=== PATIENT | male | born 1945 | race Caucasian/White ===

== ENCOUNTER → 2016-04-27 | Outpatient (CLI) | payer MEDICARE, OTHER ==
[2016-04-27 09:05] LABS: ABSOLUTE BASOPHILS # (AUTO) 0.1 10^3/uL (0.0-0.2); ABSOLUTE EOSINOPHILS # (AUTO) 0.3 10^3/uL (0.0-0.6); ABSOLUTE LYMPHOCYTES (AUTO) 2.1 10^3/uL (0.5-4.7); ABSOLUTE MONOCYTES (AUTO) 0.6 10^3/uL (0.1-1.4); BASOPHILS % (AUTO) 0.9 % (0-2); EOSINOPHILS % (AUTO) 5.1 % (0-6); HEMATOCRIT 40.3 % (37.9-51.0); HEMOGLOBIN 13.1 g/dL (13.5-17.0); LYMPHOCYTES % (AUTO) 34.4 % (13-45); MEAN CORPUSCULAR HEMOGLOBIN 28.5 pg (27.0-33.4); MEAN CORPUSCULAR HGB CONC 32.5 g/dL (32.0-36.0); MEAN CORPUSCULAR VOLUME 88 fl (80-97); MONOCYTES % (AUTO) 10.4 % (3-13); RED BLOOD COUNT 4.59 10^6/uL (4.35-5.55); SEGMENTED NEUTROPHILS % (AUTO) 49.2 % (42-78)
[2016-04-27 09:23] LABS: ALANINE AMINOTRANSFERASE 27 U/L (21-72); ALKALINE PHOSPHATASE 110 U/L (38-126); ANION GAP 13 (5-19); ASPARTATE AMINO TRANSFERASE 27 U/L (17-59); BILIRUBIN,TOTAL 1.6 mg/dL (0.2-1.3); BLOOD UREA NITROGEN 16 mg/dL (7-20); CALCIUM 9.6 mg/dL (8.4-10.2); CARBON DIOXIDE 28 mmol/L (22-30); CHLORIDE 104 mmol/L (98-107); CREATININE RESULT 0.95 mg/dL (0.52-1.25); GLUCOSE 193 mg/dL (75-110); POTASSIUM 4.3 mmol/L (3.6-5.0); SODIUM 144.5 mmol/L (137-145); TOTAL PROTEIN 7.9 g/dL (6.3-8.2)
== END ==
LOC: OD 08:39
PROVIDERS: ATTEND Urology
DX: N40.1 Benign prostatic hyperplasia with lower urinary tract symptoms (principal); I51.9 Heart disease, unspecified; N32.81 Overactive bladder; F98.0 Enuresis not due to a substance or known physiological condition; B18.1 Chronic viral hepatitis B without delta-agent
CPT/HCPCS: 36415; 80053; 85025

== ENCOUNTER → 2016-11-15 | Outpatient (CLI) | payer MEDICARE, OTHER ==
[2016-11-15 10:36] LABS: ALANINE AMINOTRANSFERASE 33 U/L (21-72); ALBUMIN 3.9 g/dL (3.5-5.0); ALKALINE PHOSPHATASE 107 U/L (38-126); ANION GAP 13 (5-19); ASPARTATE AMINO TRANSFERASE 31 U/L (17-59); BILIRUBIN,DIRECT 0.3 mg/dL (0.0-0.4); BILIRUBIN,TOTAL 1.1 mg/dL (0.2-1.3); BLOOD UREA NITROGEN 15 mg/dL (7-20); CALCIUM 9.7 mg/dL (8.4-10.2); CARBON DIOXIDE 25 mmol/L (22-30); CHLORIDE 106 mmol/L (98-107); CHOLESTEROL 141.76 mg/dL (0-200); CREATININE RESULT 0.84 mg/dL (0.52-1.25); Direct HDL 28 mg/dL (>40); GLUCOSE 160 mg/dL (75-110); POTASSIUM 4.2 mmol/L (3.6-5.0); SODIUM 143.6 mmol/L (137-145); TOTAL PROTEIN 7.9 g/dL (6.3-8.2); TRIGLYCERIDES 262 mg/dL (<150)
[2016-11-15 10:47] LABS: DIRECT LDL 72 mg/dL (<100)
[2016-11-15 10:54] LABS: VLDL CHOLESTEROL 52.4 mg/dL (10-31)
== END ==
LOC: OD 09:20
PROVIDERS: ATTEND Internal Medicine
DX: Z79.899 Other long term (current) drug therapy (principal); E78.4 Other hyperlipidemia
CPT/HCPCS: 36415; 80053; 80061

== ENCOUNTER → 2017-02-22 | Outpatient (CLI) | payer MEDICARE, OTHER ==
[2017-02-22 11:55] LABS: ALANINE AMINOTRANSFERASE 29 U/L (21-72); ALBUMIN 4.2 g/dL (3.5-5.0); ALKALINE PHOSPHATASE 107 U/L (38-126); ANION GAP 15 (5-19); ASPARTATE AMINO TRANSFERASE 26 U/L (17-59); BILIRUBIN,DIRECT 0.4 mg/dL (0.0-0.4); BILIRUBIN,TOTAL 1.3 mg/dL (0.2-1.3); BLOOD UREA NITROGEN 15 mg/dL (7-20); CALCIUM 9.4 mg/dL (8.4-10.2); CARBON DIOXIDE 24 mmol/L (22-30); CHLORIDE 108 mmol/L (98-107); CHOLESTEROL 197.97 mg/dL (0-200); CREATININE RESULT 0.87 mg/dL (0.52-1.25); Direct HDL 31 mg/dL (>40); GLUCOSE 147 mg/dL (75-110); SODIUM 147.3 mmol/L (137-145); TOTAL PROTEIN 7.5 g/dL (6.3-8.2); TRIGLYCERIDES 212 mg/dL (<150)
[2017-02-22 12:06] LABS: DIRECT LDL 135 mg/dL (<100)
[2017-02-22 12:11] LABS: VLDL CHOLESTEROL 42.4 mg/dL (10-31)
== END ==
LOC: OD 09:07
PROVIDERS: ATTEND Internal Medicine
DX: E11.9 Type 2 diabetes mellitus without complications (principal); E78.4 Other hyperlipidemia; I10 Essential (primary) hypertension; Z79.899 Other long term (current) drug therapy
CPT/HCPCS: 36415; 80053; 80061; 83036

== ENCOUNTER → 2017-06-14 | Outpatient (CLI) | payer MEDICARE, OTHER ==
[2017-06-14 12:36] LABS: ALANINE AMINOTRANSFERASE 35 U/L (21-72); ALBUMIN 4.3 g/dL (3.5-5.0); ALKALINE PHOSPHATASE 91 U/L (38-126); ASPARTATE AMINO TRANSFERASE 30 U/L (17-59); BILIRUBIN,DIRECT 0.2 mg/dL (0.0-0.4); BILIRUBIN,TOTAL 1.2 mg/dL (0.2-1.3); CHOLESTEROL 118.06 mg/dL (0-200); TOTAL PROTEIN 7.9 g/dL (6.3-8.2); TRIGLYCERIDES 168 mg/dL (<150)
[2017-06-14 12:47] LABS: DIRECT LDL 69 mg/dL (<100)
[2017-06-14 12:50] LABS: VLDL CHOLESTEROL 33.6 mg/dL (10-31)
== END ==
LOC: OD 11:29
PROVIDERS: ATTEND Internal Medicine
DX: I25.10 Atherosclerotic heart disease of native coronary artery without angina pectoris (principal); I10 Essential (primary) hypertension; I34.0 Nonrheumatic mitral (valve) insufficiency; R06.02 Shortness of breath; I49.3 Ventricular premature depolarization; E11.9 Type 2 diabetes mellitus without complications; E78.4 Other hyperlipidemia; Z79.899 Other long term (current) drug therapy
CPT/HCPCS: 36415; 80061; 80076

== ENCOUNTER → 2017-06-22 | Outpatient (CLI) | payer MEDICARE, OTHER | LOC: OD 10:24 | PROVIDERS: ATTEND Internal Medicine | DX: I25.10 Atherosclerotic heart disease of native coronary artery without angina pectoris (principal); I34.0 Nonrheumatic mitral (valve) insufficiency; R06.02 Shortness of breath; I49.3 Ventricular premature depolarization; E11.9 Type 2 diabetes mellitus without complications; E78.4 Other hyperlipidemia; I10 Essential (primary) hypertension; Z79.899 Other long term (current) drug therapy | CPT/HCPCS: 36415; 83880 ==

== ENCOUNTER → 2017-07-25 | Outpatient (CLI) | payer MEDICARE, OTHER ==
[2017-07-25 13:51] LABS: ANION GAP 14 (5-19); BLOOD UREA NITROGEN 15 mg/dL (7-20); CALCIUM 9.3 mg/dL (8.4-10.2); CARBON DIOXIDE 27 mmol/L (22-30); CHLORIDE 106 mmol/L (98-107); GLUCOSE 160 mg/dL (75-110); POTASSIUM 4.1 mmol/L (3.6-5.0); SODIUM 147.3 mmol/L (137-145)
== END ==
LOC: OD 12:41
PROVIDERS: ATTEND Internal Medicine
DX: I25.10 Atherosclerotic heart disease of native coronary artery without angina pectoris (principal); I34.0 Nonrheumatic mitral (valve) insufficiency; I10 Essential (primary) hypertension; R06.02 Shortness of breath; I49.3 Ventricular premature depolarization; E11.9 Type 2 diabetes mellitus without complications; E78.4 Other hyperlipidemia; Z79.899 Other long term (current) drug therapy
CPT/HCPCS: 36415; 80048

== ENCOUNTER → 2018-11-15 | Outpatient (CLI) | payer MEDICARE, OTHER ==
[2018-11-15 09:28] LABS: ABSOLUTE EOSINOPHILS # (AUTO) 0.2 10^3/uL (0.0-0.6); ABSOLUTE LYMPHOCYTES (AUTO) 2.2 10^3/uL (0.5-4.7); ABSOLUTE MONOCYTES (AUTO) 0.5 10^3/uL (0.1-1.4); ABSOLUTE NEUT (AUTO) 2.3 10^3/uL (1.7-8.2); BASOPHILS % (AUTO) 0.8 % (0-2); EOSINOPHILS % (AUTO) 3.4 % (0-6); HEMATOCRIT 42.3 % (37.9-51.0); MEAN CORPUSCULAR HEMOGLOBIN 28.6 pg (27.0-33.4); MEAN CORPUSCULAR VOLUME 87 fl (80-97); MONOCYTES % (AUTO) 9.7 % (3-13); PLATELET COUNT 167 10^3/uL (150-450); RED BLOOD COUNT 4.89 10^6/uL (4.35-5.55); RED CELL DISTRIBUTION WIDTH 14.5 % (11.5-14.0); SEGMENTED NEUTROPHILS % (AUTO) 44.1 % (42-78); TOTAL CELLS COUNTED % (AUTO) 100 %; WHITE BLOOD COUNT 5.2 10^3/uL (4.0-10.5)
[2018-11-15 09:52] LABS: ANION GAP 12 (5-19); BLOOD UREA NITROGEN 14 mg/dL (7-20); CALCIUM 9.5 mg/dL (8.4-10.2); CARBON DIOXIDE 29 mmol/L (22-30); CHLORIDE 98 mmol/L (98-107); GLUCOSE 326 mg/dL (75-110); POTASSIUM 3.9 mmol/L (3.6-5.0)
[2018-11-15 10:07] LABS: FREE T3 4.89 pg/mL (2.77-5.27)
[2018-11-15 10:21] LABS: THYROID STIMULATING HORMONE 5.13 uIU/mL (0.47-4.68)
== END ==
LOC: OD 08:51
PROVIDERS: ATTEND Specialist
DX: I25.10 Atherosclerotic heart disease of native coronary artery without angina pectoris (principal); I34.0 Nonrheumatic mitral (valve) insufficiency; R06.02 Shortness of breath; I49.3 Ventricular premature depolarization; E11.9 Type 2 diabetes mellitus without complications; I10 Essential (primary) hypertension; E78.49 Other hyperlipidemia; Z79.899 Other long term (current) drug therapy
CPT/HCPCS: 36415; 80048; 83735; 84443; 84481; 85025

== ENCOUNTER 2019-01-09 13:33 | Emergency (ER) | payer MEDICARE, OTHER ==
--- NOTE | 2019-01-09 14:11 | ER Document Report ---
ED Medical Screen (RME) - General Chief Complaint: Cold Symptoms Stated Complaint: VOMITING Time Seen by Provider: 01/09/19 14:06 Primary Care Provider: ACMMY MORSE MD [Primary Care Provider] - Follow up as needed Notes: Patient is a 73-year-old male presents to the emergency department with a chief complaint of a cough. He has had his coughing for the past 3 days. He denies any chest pain. He states that he is got a little bit of shortness of breath, but always has shortness of breath. Past medical history includes COPD, coronary disease, CHF. Exam: Diminished breath sounds noted bilaterally. I have greeted and performed a rapid initial assessment of this patient. A comprehensive ED assessment and evaluation of the patient, analysis of test results and completion of medical decision making process will be conducted by an additional ED providers. TRAVEL OUTSIDE OF THE [place] IN LAST 30 DAYS: No - Related Data Allergies/Adverse Reactions: No Known Allergies Allergy (Verified 01/09/19 13:51) Past Medical History - Social History Chew tobacco use (# tins/day): No Frequency of alcohol use: None Drug Abuse: None - Past Medical History Cardiac Medical History: Reports: Hx Congestive Heart Failure, Hx Hypertension Denies: Hx Coronary Artery Disease, Hx Heart Attack Pulmonary Medical History: Reports: Hx COPD Denies: Hx Asthma, Hx Bronchitis, Hx Pneumonia Neurological Medical History: Denies: Hx Cerebrovascular Accident, Hx Seizures Endocrine Medical History: Reports: Hx Diabetes Mellitus Type 1 Musculoskeltal Medical History: Denies Hx Arthritis Psychiatric Medical History: Reports: Hx Depression Past Surgical History: Reports: Hx Cardiac Catheterization, Hx Cholecystectomy, Hx Coronary Stent - Immunizations Hx Diphtheria, Pertussis, Tetanus Vaccination: Yes Physical Exam - Vital signs Vitals: Temp Pulse BP Pulse Ox 97.8 F 93 160/77 H 95 01/09/19 13:45 01/09/19 13:45 01/09/19 13:45 01/09/19 13:45 Course - Vital Signs Vital signs: Temp Pulse Resp BP Pulse Ox 97.8 F 93 160/77 H 95 01/09/19 13:45 01/09/19 13:45 01/09/19 13:45 01/09/19 13:45 Doctor's Discharge - Discharge Referrals: CAMMY MORSE MD [Primary Care Provider] - Follow up as needed
[2019-01-09 14:38] LABS: ABSOLUTE BASOPHILS # (AUTO) 0.1 10^3/uL (0.0-0.2); ABSOLUTE EOSINOPHILS # (AUTO) 0.1 10^3/uL (0.0-0.6); ABSOLUTE LYMPHOCYTES (AUTO) 1.5 10^3/uL (0.5-4.7); ABSOLUTE MONOCYTES (AUTO) 0.6 10^3/uL (0.1-1.4); BASOPHILS % (AUTO) 0.7 % (0-2); EOSINOPHILS % (AUTO) 1.6 % (0-6); HEMATOCRIT 41.2 % (37.9-51.0); HEMOGLOBIN 13.5 g/dL (13.5-17.0); LYMPHOCYTES % (AUTO) 17.6 % (13-45); MEAN CORPUSCULAR HEMOGLOBIN 28.3 pg (27.0-33.4); MEAN CORPUSCULAR HGB CONC 32.6 g/dL (32.0-36.0); MEAN CORPUSCULAR VOLUME 87 fl (80-97); MONOCYTES % (AUTO) 7.6 % (3-13); PLATELET COUNT 203 10^3/uL (150-450); RED BLOOD COUNT 4.75 10^6/uL (4.35-5.55); RED CELL DISTRIBUTION WIDTH 15.4 % (11.5-14.0); SEGMENTED NEUTROPHILS % (AUTO) 72.5 % (42-78); TOTAL CELLS COUNTED % (AUTO) 100 %; WHITE BLOOD COUNT 8.3 10^3/uL (4.0-10.5)
[2019-01-09 14:59] LABS: ALBUMIN 3.8 g/dL (3.5-5.0); ALKALINE PHOSPHATASE 102 U/L (38-126); ANION GAP 10 (5-19); ASPARTATE AMINO TRANSFERASE 18 U/L (17-59); BILIRUBIN,DIRECT 0.1 mg/dL (0.0-0.4); BILIRUBIN,TOTAL 1.7 mg/dL (0.2-1.3); BLOOD UREA NITROGEN 12 mg/dL (7-20); CALCIUM 9.3 mg/dL (8.4-10.2); CARBON DIOXIDE 30 mmol/L (22-30); CHLORIDE 98 mmol/L (98-107); CREATINE KINASE 93 U/L (55-170); GLUCOSE 328 mg/dL (75-110); POTASSIUM 4.7 mmol/L (3.6-5.0); TOTAL PROTEIN 7.6 g/dL (6.3-8.2)
[2019-01-09 15:11] LABS: CREATINE KINASE MB 1.16 ng/mL (<4.55)
[2019-01-09 15:16] LABS: TROPONIN I 0.047 ng/mL
--- NOTE | 2019-01-09 15:26 | RADIOLOGY REPORT (SQ) ---
EXAM DESCRIPTION: CHEST 2 VIEWS COMPLETED DATE/TIME: 01/09/2019 3:14 pm REASON FOR STUDY: cough COMPARISON: 11/10/2010 EXAM PARAMETERS: NUMBER OF VIEWS: two views TECHNIQUE: Digital Frontal and Lateral radiographic views of the chest acquired. RADIATION DOSE: NA LIMITATIONS: none FINDINGS: LUNGS AND PLEURA: There appears to be a calcified granuloma in the right apex. MEDIASTINUM AND HILAR STRUCTURES: No masses or contour abnormalities. HEART AND VASCULAR STRUCTURES: Cardiomegaly. No pulmonary edema. BONES: No acute findings. HARDWARE: None in the chest. OTHER: No other significant finding. IMPRESSION: Cardiomegaly without pulmonary edema. TECHNICAL DOCUMENTATION: JOB ID: [id number] [employer]- All Rights Reserved Reading location - IP/workstation name: [email or web address]
--- NOTE | 2019-01-09 17:00 | ER Document Report ---
ED General - General Chief Complaint: Cold Symptoms Stated Complaint: VOMITING Time Seen by Provider: 01/09/19 14:06 Primary Care Provider: CAMMY MORSE MD [ACTIVE STAFF] - Follow up as needed TRAVEL OUTSIDE OF THE [place] IN LAST 30 DAYS: No - HPI Onset/Duration: Gradual Quality of pain: No pain Severity: Mild Context: 73 year old male [place] with h/o a fib, htn, diabetes has had a cough and conge stion for about 5 days. He has 2 grandchildren who have been sick with respiratory illness that have been close to him. He coughed so much that he vomited earlier. He has had a low grade fever. Additional history is PTSD from [place] and [place]. Associated symptoms: Nonproductive cough - Related Data Allergies/Adverse Reactions: No Known Allergies Allergy (Verified 01/09/19 13:51) Past Medical History - Social History Smoking Status: Former Smoker Chew tobacco use (# tins/day): No Frequency of alcohol use: None Drug Abuse: None Family History: COPD, Hypertension, Reviewed & Not Pertinent Patient has suicidal ideation: No Patient has homicidal ideation: No - Past Medical History Cardiac Medical History: Reports: Hx Congestive Heart Failure, Hx Hypertension Denies: Hx Coronary Artery Disease, Hx Heart Attack Pulmonary Medical History: Reports: Hx COPD Denies: Hx Asthma, Hx Bronchitis, Hx Pneumonia Neurological Medical History: Denies: Hx Cerebrovascular Accident, Hx Seizures Endocrine Medical History: Reports: Hx Diabetes Mellitus Type 1 Musculoskeletal Medical History: Denies Hx Arthritis Psychiatric Medical History: Reports: Hx Depression Past Surgical History: Reports: Hx Cardiac Catheterization, Hx Cholecystectomy, Hx Coronary Stent - Immunizations Hx Diphtheria, Pertussis, Tetanus Vaccination: Yes Hx Pneumococcal Vaccination: 12/04/11 Review of Systems - Review of Systems Constitutional: No symptoms reported EENT: No symptoms reported Cardiovascular: No symptoms reported Respiratory: See HPI, Cough. denies: Hemoptysis, Short of breath Gastrointestinal: No symptoms reported Genitourinary: No symptoms reported Male Genitourinary: No symptoms reported Musculoskeletal: No symptoms reported Skin: No symptoms reported Hematologic/Lymphatic: No symptoms reported Neurological/Psychological: No symptoms reported Physical Exam - Vital signs Vitals: Temp Pulse BP Pulse Ox 97.8 F 93 160/77 H 95 01/09/19 13:45 01/09/19 13:45 01/09/19 13:45 01/09/19 13:45 Interpretation: Normal - General General appearance: Appears well, Alert - HEENT Head: Normocephalic, Atraumatic Eyes: Normal Pupils: PERRL - Respiratory Respiratory status: No respiratory distress Chest status: Nontender Breath sounds: Normal Chest palpation: Normal - Cardiovascular Rhythm: Regular Heart sounds: Normal auscultation Murmur: No - Abdominal Inspection: Normal Distension: No distension Bowel sounds: Normal Tenderness: Nontender Organomegaly: No organomegaly - Back Back: Normal, Nontender - Extremities General upper extremity: Normal inspection, Nontender, Normal color, Normal ROM, Normal temperature General lower extremity: Normal inspection, Nontender, Normal color, Normal ROM, Normal temperature, Normal weight bearing. No: Vannessa's sign - Neurological Neuro grossly intact: Yes Cognition: Normal Orientation: AAOx4 Haynes Coma Scale Eye Opening: Spontaneous Malini Coma Scale Verbal: Oriented Malini Coma Scale Motor: Obeys Commands Haynes Coma Scale Total: 15 Speech: Normal Motor strength normal: LUE, RUE, LLE, RLE Sensory: Normal - Psychological Associated symptoms: Normal affect, Normal mood - Skin Skin Temperature: Warm Skin Moisture: Dry Skin Color: Normal Course - Re-evaluation Re-evalutation: 01/09/19 17:27 MDM Pleasant 73 year old male with complaints of cough sinus congestion and getting worse from resp illness that he has had for about 5 days. Glucose a bit elevated here. - Vital Signs Vital signs: Temp Pulse Resp BP Pulse Ox 97.8 F 93 160/77 H 95 01/09/19 13:45 01/09/19 13:45 01/09/19 13:45 01/09/19 13:45 - Laboratory Result Diagrams: 01/09/19 14:15 01/09/19 14:15 Laboratory results interpreted by me: 01/09/19 01/09/19 01/09/19 14:15 14:15 17:34 RDW 15.4 H Glucose 328 H POC Glucose 202 H Total Bilirubin 1.7 H - Diagnostic Test Radiology reviewed: Reports reviewed - EKG Interpretation by Me EKG shows normal: Sinus rhythm Rate: Tachycardia - Sinus Tachy Nl axis [address] elevation or depression Repolarization abnormality. my interpretation. Discharge - Discharge Clinical Impression: Sinusitis Qualifiers: Sinusitis location: maxillary Chronicity: acute Recurrence: non-recurrent Qualified Code(s): J01.00 - Acute maxillary sinusitis, unspecified Diabetes mellitus Qualifiers: Diabetes mellitus type: type 2 Diabetes mellitus loading machine operator insulin use: without loading machine operator use Diabetes mellitus complication status: with other specified complication Qualified Code(s): E11.69 - Type 2 diabetes mellitus with other specified complication Condition: Good Disposition: HOME, SELF-CARE Instructions: Cough Suppressant & Expectorant Medications, Hyperglycemia ([facility]), Sinusitis ([facility]) Additional Instructions: See your doctor in followup. Your blood sugar was elevated a bit. Be sure and take your diabetic medicines. Please return here for any problems or any concerns. Prescriptions: Benzonatate [Tessalon Perle 100 mg Capsule] 100 mg PO Q8HP PRN #21 cap PRN Reason: Amoxicillin/Potassium Clav [Amox-Clav 875-125 mg Tablet] 1 each PO BID #20 tablet Referrals: CAMMY MORSE MD [ACTIVE STAFF] - Follow up as needed
[2019-01-09] MEDS ORDERED: INSULIN REG, HUMAN 100 UNIT/ML 3 ML VIAL (PYX) SUBCUT ONE (17:28)
[2019-01-09 18:07] LABS: A TYPE INFLUENZA AG NEGATIVE (NEGATIVE); B INFLUENZA AG NEGATIVE (NEGATIVE)
--- NOTE | 2019-01-09 18:19 | EKG REPORT ---
SEVERITY:- ABNORMAL ECG - INCOMPLETE ANALYSIS DUE TO MISSING DATA IN PRECORDIAL LEAD(S) SINUS TACHYCARDIA VENTRICULAR PREMATURE COMPLEXES NONSPECIFIC T ABNORMALITIES, LATERAL LEADS PROLONGED QT INTERVAL : Confirmed by: Matthew Lima MD 09-Jan-2019 18:19:19
[2019-01-09 18:45] VITALS: BP 149/87
== END 2019-01-09 18:45 | disposition home or self-care (01) ==
LOC: ER 13:33
DX: J01.00 Acute maxillary sinusitis, unspecified (principal); E11.8 Type 2 diabetes mellitus with unspecified complications; R05 Cough; R11.10 Vomiting, unspecified; R50.9 Fever, unspecified; I10 Essential (primary) hypertension; R09.81 Nasal congestion; J44.9 Chronic obstructive pulmonary disease, unspecified; R00.0 Tachycardia, unspecified; Z87.891 Personal history of nicotine dependence
CPT/HCPCS: 93005; 36415; 82553; 82962; 82550; 85025; 80053; 84484; 87804; 71046; 93010; A9270; 99284; J1815

== ENCOUNTER 2019-01-13 23:34 | Emergency (ER) | payer MEDICARE, OTHER ==
[2019-01-14] MEDS ORDERED: IPRATROPIUM/ALBUTEROL 0.5-2.5 MG/3 ML AMPUL NEB ONE (02:36)
--- NOTE | 2019-01-14 02:37 | ER Document Report ---
ED Respiratory Problem - General Chief Complaint: Shortness Of Breath Stated Complaint: TROUBLE BREATHING Time Seen by Provider: 01/14/19 02:29 Primary Care Provider: FRANCOIS WRIGHT NP [Primary Care Provider] - Follow up as needed Notes: Patient is a 73-year-old male that comes emergency department for chief complai nt of coughing episodes, wheezing, shortness of breath. He states he was seen several days ago and started on Augmentin by his primary care provider for sinusitis. He is not running fevers. He states that at rest he feels okay other than coughing but if he tries to ambulate he becomes very short of breath. He does have history of COPD, former smoker, not on home oxygen or using home albuterol. He denies history of IA or CAD but states that he was told he might have CHF because of exposure to agent orange in the past. TRAVEL OUTSIDE OF THE [place] IN LAST 30 DAYS: No - Related Data Allergies/Adverse Reactions: No Known Allergies Allergy (Verified 01/09/19 13:51) Past Medical History - General Information source: Patient - Social History Smoking Status: Former Smoker Frequency of alcohol use: None Drug Abuse: None Lives with: Family Family History: COPD, Hypertension, Reviewed & Not Pertinent Patient has suicidal ideation: No Patient has homicidal ideation: No - Past Medical History Cardiac Medical History: Reports: Hx Congestive Heart Failure, Hx Hypertension Denies: Hx Coronary Artery Disease, Hx Heart Attack Pulmonary Medical History: Reports: Hx COPD Denies: Hx Asthma, Hx Bronchitis, Hx Pneumonia Neurological Medical History: Denies: Hx Cerebrovascular Accident, Hx Seizures Endocrine Medical History: Reports: Hx Diabetes Mellitus Type 1 Musculoskeletal Medical History: Denies Hx Arthritis Psychiatric Medical History: Reports: Hx Depression Past Surgical History: Reports: Hx Cardiac Catheterization, Hx Cholecystectomy, Hx Coronary Stent - Immunizations Hx Diphtheria, Pertussis, Tetanus Vaccination: Yes Hx Pneumococcal Vaccination: 12/04/11 Review of Systems - Review of Systems Constitutional: No symptoms reported EENT: No symptoms reported Cardiovascular: See HPI Respiratory: See HPI Gastrointestinal: No symptoms reported Genitourinary: No symptoms reported Male Genitourinary: No symptoms reported Musculoskeletal: No symptoms reported Skin: No symptoms reported Hematologic/Lymphatic: No symptoms reported Neurological/Psychological: No symptoms reported Physical Exam - Vital signs Vitals: Temp Pulse Resp BP Pulse Ox 97.5 F 101 H 20 188/110 H 98 10/12/19 23:54 01/13/19 23:54 01/13/19 23:54 01/13/19 23:54 01/13/19 23:54 - Notes Notes: GENERAL: Alert, interacts well. No acute distress. Talkative and well- appearing. HEAD: Normocephalic, atraumatic. EYES: Pupils equal, round, and reactive to light. Extraocular movements intact. ENT: Oral mucosa moist, tongue midline. Oropharynx unremarkable. Airway patent. Mild nasal congestion, no overt sinus tenderness. TM's intact. NECK: Full range of motion. Supple. Trachea midline. LUNGS: Good breath sounds bilaterally but there are some scattered wheezes. No rales or rhonchi. No tachypnea or distress. Speaks in full sentences. HEART: Regular rate and rhythm. No murmur ABDOMEN: Soft, non-tender. Non-distended. Bowel sounds present in all 4 quadrants. GENITOURINARY: Deferred EXTREMITIES: Moves all 4 extremities spontaneously. No edema, normal radial and dorsalis pedis pulses bilaterally. No cyanosis. BACK: no cervical, thoracic, lumbar midline tenderness. No saddle anesthesia, normal distal neurovascular exam. Moves all extremities in full range of motion. NEUROLOGICAL: Alert and oriented x3. Normal speech. Cranial nerves II through XII grossly intact. PSYCH: Normal affect, normal mood. SKIN: Warm, dry, normal turgor. No rashes or lesions noted. Course - Re-evaluation Re-evalutation: Patient with some coughing and wheezing on my exam, after DuoNeb this completely resolved. He has had sinusitis, this appears to be upper respiratory in nature. Chest x-ray negative, BNP is somewhat elevated, however he has no lower extremity swelling or vascular congestion on exam. No rales on exam either. Troponin is indeterminate but lower than his average compared to prior. CBC unremarkable. EKG without acute findings noted. On reevaluation patient has had resolution of symptoms and he is requesting to leave. is also requesting to leave. Clinical picture is most consistent with COPD exac erbation/bronchitis, placed on steroids with precautions, provided with inhaler, patient is to follow-up very close with his provider and return if he worsens in any way. Patient and significant other state appreciation and agreement. - Vital Signs Vital signs: Temp Pulse Resp BP Pulse Ox 97.8 F 80 18 163/97 H 96 01/14/19 05:11 01/14/19 05:11 01/14/19 05:11 01/14/19 05:11 01/14/19 05:11 - Laboratory Result Diagrams: 01/14/19 03:15 01/14/19 03:15 Laboratory results interpreted by me: 01/14/19 01/14/19 01/14/19 03:15 03:15 03:15 RDW 14.8 H Glucose 246 H Total Bilirubin 1.8 H NT-Pro-B Natriuret Pep 2090 H Discharge - Discharge Clinical Impression: Wheezing, Productive cough, Shortness of breath Condition: Stable Disposition: HOME, SELF-CARE Additional Instructions: Your evaluation is most consistent with bronchitis/COPD exacerbation. Take the prednisone as prescribed, drink plenty fluids and reduce carbohydrates to avoid elevated blood sugars. Continue your antibiotics. Use the inhaler and spacer every 4-6 hours as needed. Follow-up closely with primary care. Return if you worsen including chest pain, increased difficulty breathing, fever, or any other concerning symptoms. Prescriptions: Prednisone [Deltasone 20 mg Tablet] 2 tab PO DAILY 5 Days #10 tablet Albuterol Sulfate [Proair HFA Inhalation Aerosol 8.5 gm MDI] 2 puff IH Q4H PRN #1 mdi PRN Reason: Referrals: FRANCOIS WRIGHT BUSINESS OFFICE SPECIALIST [Primary Care Provider] - Follow up as needed
--- NOTE | 2019-01-14 03:05 | RADIOLOGY REPORT (SQ) ---
XR CHEST 2 VIEWS EXAM DATE: 01/14/2019 12:00 AM CDT HISTORY: SOB on exertion, recent bronchitis. COMPARISON: 01/09/2019 FINDINGS: The heart size is mildly enlarged. No pulmonary vascular congestion is seen. No consolidation, pleural effusion, or pneumothorax is seen. There is an unchanged calcified granuloma in the right upper lung zone. No acute bony findings. IMPRESSION: No evidence of acute cardiopulmonary disease.
[2019-01-14 03:32] LABS: ABSOLUTE BASOPHILS # (AUTO) 0.1 10^3/uL (0.0-0.2); ABSOLUTE LYMPHOCYTES (AUTO) 1.5 10^3/uL (0.5-4.7); ABSOLUTE MONOCYTES (AUTO) 0.6 10^3/uL (0.1-1.4); ABSOLUTE NEUT (AUTO) 6.4 10^3/uL (1.7-8.2); BASOPHILS % (AUTO) 0.7 % (0-2); EOSINOPHILS % (AUTO) 0.3 % (0-6); HEMATOCRIT 43.2 % (37.9-51.0); HEMOGLOBIN 14.1 g/dL (13.5-17.0); LYMPHOCYTES % (AUTO) 17.6 % (13-45); MEAN CORPUSCULAR HEMOGLOBIN 28.3 pg (27.0-33.4); MEAN CORPUSCULAR HGB CONC 32.6 g/dL (32.0-36.0); MEAN CORPUSCULAR VOLUME 87 fl (80-97); MONOCYTES % (AUTO) 7.4 % (3-13); PLATELET COUNT 247 10^3/uL (150-450); RED BLOOD COUNT 4.99 10^6/uL (4.35-5.55); RED CELL DISTRIBUTION WIDTH 14.8 % (11.5-14.0); TOTAL CELLS COUNTED % (AUTO) 100 %; WHITE BLOOD COUNT 8.7 10^3/uL (4.0-10.5)
[2019-01-14 03:46] LABS: ALBUMIN 3.9 g/dL (3.5-5.0); ALKALINE PHOSPHATASE 110 U/L (38-126); ANION GAP 11 (5-19); ASPARTATE AMINO TRANSFERASE 21 U/L (17-59); BILIRUBIN,DIRECT 0.1 mg/dL (0.0-0.4); BILIRUBIN,TOTAL 1.8 mg/dL (0.2-1.3); BLOOD UREA NITROGEN 12 mg/dL (7-20); CALCIUM 9.3 mg/dL (8.4-10.2); CARBON DIOXIDE 27 mmol/L (22-30); CHLORIDE 101 mmol/L (98-107); GLUCOSE 246 mg/dL (75-110); POTASSIUM 4.1 mmol/L (3.6-5.0)
[2019-01-14 03:58] LABS: TROPONIN I 0.039 ng/mL
[2019-01-14] MEDS ORDERED: PREDNISONE 20 MG TABLET PO ONE (05:01)
[2019-01-14] MEDS ORDERED: ALBUTEROL SULFATE HFA (90 MCG/PUFF) 8 GM MDI (1 MDI/ER DISP) IH ONE (05:03)
[2019-01-14 05:14] VITALS: BP 163/97
--- NOTE | 2019-01-14 08:36 | EKG REPORT ---
SEVERITY:- BORDERLINE ECG - SINUS RHYTHM ATRIAL PREMATURE COMPLEX BORDERLINE PROLONGED QT INTERVAL : Confirmed by: Matthew Lima MD 14-Jan-2019 08:36:01
== END 2019-01-14 05:30 | disposition home or self-care (01) ==
LOC: ER 23:34
DX: R06.02 Shortness of breath (principal); R05 Cough; R06.2 Wheezing; J44.9 Chronic obstructive pulmonary disease, unspecified; Z87.891 Personal history of nicotine dependence; I50.9 Heart failure, unspecified; I11.0 Hypertensive heart disease with heart failure; E10.9 Type 1 diabetes mellitus without complications
CPT/HCPCS: 93005; 36415; 85025; 80053; 84484; 83880; 71046; 93010; A9270 ×2; J3490; J7512; J7620

== ENCOUNTER 2019-05-30 11:52 | Emergency (ER) | payer MEDICARE | END 2019-05-30 15:10 | disposition left against medical advice (07) | LOC: ER 11:52 | DX: Z53.21 Procedure and treatment not carried out due to patient leaving prior to being seen by health care provider (principal); R14.0 Abdominal distension (gaseous); R06.02 Shortness of breath; R11.10 Vomiting, unspecified ==

== ENCOUNTER 2020-01-16 11:33 | Day surgery (SDC) | payer MEDICARE, OTHER ==
[~2020-01-16 11:33] MED LIST: CHONDR SU A NA/HYALUR INTRAOC KIT (SURGICARE) ONE; EPINEPHRINE INJ/PF 1 MG/1 ML AMPULE ONE; KETOROLAC TROMETHAMINE 0.45% 4 DROP/0.4 ML DROPERETTE OS PRN; LIDOCAINE 1%/PHENYLEPHRINE 1.5% 1 ML VIAL ONE
[2020-01-16] MEDS: TROPICAMIDE 1% OPH SOLN 15 ML OS PRN ×3 (11:57→12:16)
[2020-01-16] MEDS: TETRACAINE HCL 0.5% OPH SOLN 4 ML OS PRN ×3 (11:57→12:24)
[2020-01-16] MEDS: CYCLOPENTOLATE 0.2%/PHENYLEPHRINE 1% OPH SOLN 2 ML OS PRN ×3 (11:58→12:16)
[2020-01-16] MEDS: BESIFLOXACIN HCL 0.6% OPH SUSP 5 ML BOTTLE OS PRN ×4 (11:58→12:45)
[2020-01-16] MEDS ORDERED: MIDAZOLAM 2 MG/2 ML INJ ONE (12:05)
[2020-01-16] MEDS: PREDNISOLONE ACETATE 1% OPH SUSP 5 ML OS PRN ×2 (12:45)
[2020-01-16] MEDS: DORZOLAMIDE HCL 2%/TIMOLOL MALEAT 0.5% OPH SOLN 10 ML OS PRN ×2 (12:45)
[2020-01-16] MEDS ORDERED: FENTANYL CITRATE INJ/PF 100 MCG/2 ML AMPUL ONE (12:52)
--- NOTE | 2020-01-16 14:49 | Operative Report ---
Operative Report-[facility] Operative Report: DATE OF SURGERY: January 16, 2020 PREOPERATIVE DIAGNOSIS: NUCLEAR CATARACT, LEFT EYE. POSTOPERATIVE DIAGNOSIS: NUCLEAR CATARACT, LEFT EYE. PROCEDURE PERFORMED: PHACOEMULSIFICATION WITH POSTERIOR CHAMBER INTRAOCULAR LENS IMPLANT, LEFT EYE. SURGEON: Chepe Calvillo DO MEDICATIONS AND ANESTHESIA: Versed: IV Versed Tetracaine drops: 1 to 2 drops given as needed COMPLICATION: None INDICATIONS FOR SURGERY: Medical necessity: Best corrected visual acuity worse than 20/40 secondary to cataracts with impairment of ability to carry out needs or desired activities, blurred vision, visual distortion, reduced contrast sensitivity and/or glare with association functional impairment and supporting documentation/testing, and cataracts causing symptomatic impairment of visual functions not corrected with tolerable changes in glasses or contact lenses interfering with activities of daily life. PROCEDURE: Consent: The risks, benefits and alternatives of this procedures was discussed with the patient. The patient read and signed the consent forms, was identified and was seated in the exam chair. IOL: MX 60 E 13.0 IOL Diopters: Phacoemulsification with posterior chamber intraocular lens implant: The face was prepped with 5% povidone iodine solution, and a few drops of 5% povidone iodine solution was instilled into the inferior fornix. A non-fenestrated drape was placed over the eye and the lids were parted with the speculum. A paracentesis was made with a 15 degree blade, and 1% lidocaine MPF followed by viscoelastic was injected into the anterior chamber. A 2.4 mm metal micro- keratome was used to create a temporal clear corneal incision. A circular anterior capsulorrhexis was created, followed by hydro-dissection and hydro- delineation. The phacoemulsification hand piece was inserted and the nucleus was removed with the Phaco chop technique. The irrigation-aspiration hand piece was used to remove the residual cortex, and vacuum the posterior capsule. The capsular bag was inflated and viscoelastic and the above-mentioned IOL was injected into the eye with care to insert both leaning and trailing haptics in the capsular bag. The irrigation/aspiration hand piece was reinserted to remove residual viscoelastic from the capsular bag and anterior chamber. The corneal incision was hydrated, and anterior chamber was inflated with sterile BSS via the paracentesis site, and found to be watertight. Postop medication:1 drop of prednisolone into operative by followed by 1 drop of Cosopt into operative eye followed by 1 drop of Besivance intraoperative by Other:
== END 2020-01-16 13:18 ==
LOC: SC 11:33
PROVIDERS: ATTEND Ophthalmology
DX: H25.12 Age-related nuclear cataract, left eye (principal); E11.36 Type 2 diabetes mellitus with diabetic cataract; Z79.4 Long term (current) use of insulin; Z79.82 Long term (current) use of aspirin; Z87.891 Personal history of nicotine dependence; K21.9 Gastro-esophageal reflux disease without esophagitis; E78.00 Pure hypercholesterolemia, unspecified; I25.10 Atherosclerotic heart disease of native coronary artery without angina pectoris; G47.33 Obstructive sleep apnea (adult) (pediatric); I11.0 Hypertensive heart disease with heart failure; I50.9 Heart failure, unspecified
CPT/HCPCS: 66984; 82962; V2632; J2250; J3490 ×2; A9270; J0171; J3010

== ENCOUNTER 2020-01-30 09:18 | Day surgery (SDC) | payer MEDICARE, OTHER ==
[~2020-01-30 09:18] MED LIST changes: +KETOROLAC TROMETHAMINE 0.45% 4 DROP/0.4 ML DROPERETTE OD PRN; -KETOROLAC TROMETHAMINE 0.45% 4 DROP/0.4 ML DROPERETTE OS PRN
[2020-01-30] MEDS: TETRACAINE HCL 0.5% OPH SOLN 4 ML OD PRN ×3 (09:42→10:11)
[2020-01-30] MEDS: BESIFLOXACIN HCL 0.6% OPH SUSP 5 ML BOTTLE OD PRN ×4 (09:43→10:28)
[2020-01-30] MEDS: TROPICAMIDE 1% OPH SOLN 15 ML OD PRN ×3 (09:43→10:03)
[2020-01-30] MEDS: CYCLOPENTOLATE 0.2%/PHENYLEPHRINE 1% OPH SOLN 2 ML OD PRN ×3 (09:43→10:03)
[2020-01-30] MEDS ORDERED: MIDAZOLAM 2 MG/2 ML INJ ONE ×2 (09:54→10:01)
[2020-01-30] MEDS ORDERED: FENTANYL CITRATE INJ/PF 100 MCG/2 ML AMPUL ONE (09:54)
[2020-01-30] MEDS: DORZOLAMIDE HCL 2%/TIMOLOL MALEAT 0.5% OPH SOLN 10 ML OD PRN ×2 (10:28)
[2020-01-30] MEDS: PREDNISOLONE ACETATE 1% OPH SUSP 5 ML OD PRN ×2 (10:28)
--- NOTE | 2020-01-30 13:42 | Operative Report ---
Operative Report-[facility] Operative Report: DATE OF SURGERY: January 30, 2020 PREOPERATIVE DIAGNOSIS: NUCLEAR CATARACT, RIGHT EYE. POSTOPERATIVE DIAGNOSIS: NUCLEAR CATARACT, RIGHT EYE. PROCEDURE PERFORMED: PHACOEMULSIFICATION WITH POSTERIOR CHAMBER INTRAOCULAR LENS IMPLANT, RIGHT EYE. SURGEON: Chepe Calvillo DO MEDICATIONS AND ANESTHESIA: Versed: IV Versed Tetracaine drops: 1 to 2 drops given as needed COMPLICATION: None INDICATIONS FOR SURGERY: Medical necessity: Best corrected visual acuity worse than 20/40 secondary to cataracts with impairment of ability to carry out needs or desired activities, blurred vision, visual distortion, reduced contrast sensitivity and/or glare with association functional impairment and supporting documentation/testing, and cataracts causing symptomatic impairment of visual functions not corrected with tolerable changes in glasses or contact lenses interfering with activities of daily life. PROCEDURE: Consent: The risks, benefits and alternatives of this procedures was discussed with the patient. The patient read and signed the consent forms, was identified and was seated in the exam chair. IOL: MX 60 E 12.0 IOL Diopters: Phacoemulsification with posterior chamber intraocular lens implant: The face was prepped with 5% povidone iodine solution, and a few drops of 5% povidone iodine solution was instilled into the inferior fornix. A non-fenestrated drape was placed over the eye and the lids were parted with the speculum. A paracentesis was made with a 15 degree blade, and 1% lidocaine MPF followed by viscoelastic was injected into the anterior chamber. A 2.4 mm metal micro- keratome was used to create a temporal clear corneal incision. A circular anterior capsulorrhexis was created, followed by hydro-dissection and hydro- delineation. The phacoemulsification hand piece was inserted and the nucleus was removed with the Phaco chop technique. The irrigation-aspiration hand piece was used to remove the residual cortex, and vacuum the posterior capsule. The capsular bag was inflated and viscoelastic and the above-mentioned IOL was injected into the eye with care to insert both leaning and trailing haptics in the capsular bag. The irrigation/aspiration hand piece was reinserted to remove residual viscoelastic from the capsular bag and anterior chamber. The corneal incision was hydrated, and anterior chamber was inflated with sterile BSS via the paracentesis site, and found to be watertight. Postop medication: 1 drop of prednisolone into operative by followed by 1 drop of Cosopt into operative eye followed by 1 drop of Besivance intraoperative by other:
== END 2020-01-30 11:07 | disposition home or self-care (01) ==
LOC: SC 09:18
PROVIDERS: ATTEND Ophthalmology
DX: H25.11 Age-related nuclear cataract, right eye (principal); Z98.42 Cataract extraction status, left eye; E11.36 Type 2 diabetes mellitus with diabetic cataract; I25.10 Atherosclerotic heart disease of native coronary artery without angina pectoris; K21.9 Gastro-esophageal reflux disease without esophagitis; E78.00 Pure hypercholesterolemia, unspecified; Z79.82 Long term (current) use of aspirin; Z79.4 Long term (current) use of insulin; I11.0 Hypertensive heart disease with heart failure; I50.9 Heart failure, unspecified; Z87.891 Personal history of nicotine dependence
CPT/HCPCS: 66984; 82962; J2250; J3490 ×2; A9270; J0171; J3010; V2632

== ENCOUNTER → 2020-04-15 | Outpatient (CLI) | payer MEDICARE, OTHER ==
--- NOTE | 2020-04-15 12:15 | RADIOLOGY REPORT (SQ) ---
EXAM DESCRIPTION: CT CHEST WITHOUT IMAGES COMPLETED DATE/TIME: 04/15/2020 9:10 am REASON FOR STUDY: (J43.2)CENTRILOBULAR EMPHYSEMA J43.2 CENTRILOBULAR EMPHYSEMA COMPARISON: 10/22/2014 TECHNIQUE: CT scan performed of the chest without intravenous contrast. Images reviewed with lung, soft tissue and bone windows. Reconstructed coronal and sagittal MPR images reviewed. All images st ored on PACS. All CT scanners at this facility use dose modulation, iterative reconstruction, and/or weight based d osing when appropriate to reduce radiation dose to as low as reasonably achievable (ALARA). [facility]: Dose Right [facility]: CareDose [facility]: Dose Right [facility]: Teradose 4D [facility]: [employer] RADIATION DOSE: CT Rad equipment meets quality standard of care and radiation dose reduction techniq ues were employed. CTDIvol: 17.9 mGy. DLP: 786 mGy-cm. mGy. LIMITATIONS: No technical limitations. FINDINGS: LUNGS AND PLEURA: Calcified granuloma in the right upper lobe is again noted. Centrilobul ar emphysematous changes have progressed when compared to 2014. Changes are most prominent in the ri ght upper lobe. No suspicious pulmonary nodules. No consolidation. Mild subpleural changes in the periphery of the right lower lobe. HILAR AND MEDIASTINAL STRUCTURES: No identified masses or abnormal nodes. No obvious aneurysm. HEART AND VASCULAR STRUCTURES: No aneurysm. No pericardial effusion. UPPER ABDOMEN: No significant findings. Limited exam. THYROID AND OTHER SOFT TISSUES: No masses. No adenopathy. BONES: No significant finding. HARDWARE: None in the chest. OTHER: No other significant findings. IMPRESSION: Increasing centrilobular emphysematous changes most marked in the right upper lobe. Faizan cified granuloma in the right upper lobe is stable in appearance. TECHNICAL DOCUMENTATION: JOB ID: [id number] Quality ID # [id number]: Final reports with documentation of one or more dose reduction techniques (e.g., Au tomated exposure control, adjustment of the mA and/or kV according to patient size, use of iterative reconstruction technique) 2010 [employer]- All Rights Reserved Reading location - IP/workstation name: [email or web address]
== END ==
LOC: RAD 08:40
PROVIDERS: ATTEND Internal Medicine Pulmonary Disease
DX: J43.2 Centrilobular emphysema (principal)
CPT/HCPCS: 71250